=== PATIENT | male | born 1985 | race Caucasian/White ===

== ENCOUNTER 2017-10-08 06:53 | Emergency (ER) | payer OTHER ==
[~2017-10-08] VITALS: Ht 190.5 cm; Wt 88.5 kg
[~2017-10-08 06:53] MED LIST: Z.0.NO CURRENT MEDS
[2017-10-08 06:58] VITALS: BP 140/80; PULSE 41; RESP 16; TEMP 98.6; O2SAT 100
[2017-10-08 07:11] VITALS: BP 133/71; PULSE 41; RESP 16; TEMP 98.3; O2SAT 100
[2017-10-08] MEDS ORDERED: CYCL10TA PO (07:19)
[2017-10-08] MEDS ORDERED: MEDR4PAK PO (07:19)
--- NOTE | 2017-10-08 07:19 | PD ---
HPI Chief Complaint: Back/ Neck Pain or Injury Time Seen by Provider: 07:10 Travel History International Travel<30 days: No Contact w/Intl Traveler<30days: No Traveled to known affect area: No History of Present Illness HPI 32-year-old male complains of pain in the right lumbar back. He says that her friend lifting 8000 pounds of bricks 2 days ago. He also ran a 5K. Pain is severe this morning. Pain made it difficult to walk. No fecal or urinary incontinence. No radiation of pain. No numbness tingling. PFSH Past Medical History Diminished Hearing: No Musculoskeletal: Yes (FX R HAND) Tetanus Vaccination: Never Vaccinated Influenza Vaccination: No Social History Alcohol Use: No Tobacco Use: No Substance Use: No Allergies-Medications (Allergen,Severity, Reaction): Coded Allergies: No Known Allergies (Verified Allergy, Mild, 10/08/17) Reported Meds & Prescriptions Reported Meds & Active Scripts Active Flexeril (Cyclobenzaprine HCl) 10 Mg Tab 10 Mg PO TID Medrol Dosepak (Methylprednisolone) 4 Mg Dspk 4 Mg PO DIRECTED Per Pharmacist direction Reported No Current Meds (Miscellaneous Medication) Misc No Current Meds (Miscellaneous Medication) Misc Review of Systems Eyes: No: Blurred Vision HENT: No: Sore Throat Cardiovascular: No: Irregular Rhythm Respiratory: No: Shortness of Breath Gastrointestinal: No: Vomiting Physical Exam Narrative GENERAL: 32-year-old male well-nourished well-developed GASTROINTESTINAL: Abdomen soft, non-tender, nondistended. MUSCULOSKELETAL: No cyanosis, or edema. Minimal tenderness to palpation in the right paralumbar distribution. NEUROLOGIC: There is no clonus about the ankle. 2+ DTRs the patella are noted. Patient is ambulatory. BACK: Nontender without obvious deformity. No CVA tenderness. Data Data Last Documented VS Vital Signs Date Time Temp Pulse Resp B/P (MAP) Pulse Ox O2 Delivery O2 Flow Rate FiO2 10/08/17 07:12 68 15 10/08/17 07:11 98.3 133/71 (91) 100 Orders Orders Acetamin-Hydrocod 325-5 Mg ([place] 5-325 (10/08/17 07:30) Ed Discharge Order (10/08/17 07:20) MDM Medical Decision Making Medical Screen Exam Complete: Yes Emergency Medical Condition: Yes Medical Record Reviewed: Yes Differential Diagnosis Fracture, dislocation, myofascial strain Narrative Course Patient has myofascial strain. Scripts as below. Diagnosis Primary Impression: Acute myofascial strain of lumbar region Qualified Codes: S39.012A - Strain of muscle, fascia and tendon of lower back , initial encounter Referrals: Primary Care Physician call for appointment Patient Instructions: General Instructions Med/Other Pt SpecificInfo: Prescription(s) given Scripts Cyclobenzaprine (Flexeril) 10 Mg Tab 10 MG PO TID for Muscle Spasm, #12 TAB 0 Refills Prov: Carlo Renae MD 10/08/17 Methylprednisolone Dosepak (Medrol Dosepak) 4 Mg Dspk 4 MG PO DIRECTED, #1 DSPK 0 Refills Per Pharmacist direction Prov: Carlo Renae MD 10/08/17 Disposition: 01 DISCHARGE HOME Condition: Stable Carlo Renae MD Oct 08, 2017 07:19
[2017-10-08] MEDS ORDERED: ACETAMINOPHEN/HYDROcodone 325 MG/5 MG TAB PO ONE (07:30)
[2017-10-08 07:47] VITALS: BP 120/77; TEMP 98.1
== END 2017-10-08 07:35 | disposition home or self-care (01) ==
LOC: NEPE 06:53
DX: S39.012A Strain of muscle, fascia and tendon of lower back, initial encounter (principal); X50.9XXA Other and unspecified overexertion or strenuous movements or postures, initial encounter
CPT/HCPCS: 99283